=== PATIENT | male | born 1955 | race Caucasian/White ===

== ENCOUNTER 2022-09-22 16:04 | Emergency (ER) | payer OTHER ==
[2022-09-22 16:49] VITALS: TEMP 98; BMI 30.5
[2022-09-22] MEDS ORDERED: MAGNESIUM CITRATE 300 ML BOTTLE PO ONE (18:32)
[2022-09-22] MEDS ORDERED: KETOROLAC TROMETHAMINE 15 MG/ML VIAL IVPUSH ONE (18:35)
[2022-09-22] MEDS ORDERED: diazePAM 5 MG TABLET PO ONE (18:36)
[2022-09-22 19:00] LABS: BASO % 0.4 % (0-2.0); EOS % 1.1 % (0-4.5); HEMATOCRIT 45.3 % (35.4-49); HEMOGLOBIN 15.3 GM/dL (11.7-16.9); LYMPH % 30.7 % (8-40); MCH 28.3 pg (25.7-33.7); MCHC 33.8 g/dl (32.0-35.9); MEAN CELL VOLUME 83.7 fl (80-96); MEAN PLT VOLUME 7.4 fl (7.5-11.1); MONO % 12.8 % (3.8-10.2); PLATELET COUNT 271 10^3/uL (134-434); RBC 5.41 M/mm3 (4.00-5.60); RDW 14.1 % (11.9-15.9); WHITE BLOOD COUNT 4.3 K/mm3 (4.0-10.0)
[2022-09-22 19:04] LABS: PH,URINE 8.5 (5.0-8.0); URINE APPEARANCE CLEAR; URINE BILIRUBIN NEGATIVE (NEGATIVE); URINE COLOR YELLOW; URINE GLUCOSE (UA) NEGATIVE (NEGATIVE); URINE KETONE 1+ (NEGATIVE); URINE LEUK ESTERASE NEGATIVE (NEGATIVE); URINE NITRITE NEGATIVE (NEGATIVE); URINE PROTEIN NEGATIVE (NEGATIVE); URINE UROBILINOGEN 0.2 mg/dL (0.2-1.0)
[2022-09-22 19:22] LABS: ALBUMIN 4.3 g/dl (3.4-5.0); BLOOD UREA NITROGEN 15.5 mg/dL (7-18); CALCIUM 9.6 mg/dL (8.5-10.1); MAGNESIUM 2.6 mg/dL (1.8-2.4)
[2022-09-22 19:25] LABS: CREATININE 1.1 mg/dL (0.55-1.3)
[2022-09-22 19:27] LABS: TOT PROT 7.9 g/dl (6.4-8.2)
[2022-09-22] MEDS ORDERED: POLYETHYLENE GLYCOL (HEALTHYLAX) 3350 17 GM PACKET PO ONE (19:30)
[2022-09-22] MEDS ORDERED: POLYETHYLENE GLYCOL (HEALTHYLAX) 3350 17 GM PACKET ONE (19:35)
[2022-09-22 21:20] VITALS: BP 100/61; PULSE 87; RESP 18
[2022-09-22] MEDS ORDERED: LIDOCAINE 5% TOPICAL PATCH TP ONE (21:41)
[2022-09-22] MEDS ORDERED: LIDOCAINE 5% TOPICAL PATCH ONE (21:48)
[2022-09-23] MEDS ORDERED: LIDOCAINE PATCH REMOVAL MC SCH (10:00)
== END 2022-09-22 21:54 | disposition home or self-care (01) ==
LOC: JER 16:04
PROC: 3E0333Z Introduction of Anti-inflammatory into Peripheral Vein, Percutaneous Approach (ICD-10-PCS; principal; 2022-09-22)
DX: K59.00 Constipation, unspecified (principal); M54.50 Low back pain, unspecified
CPT/HCPCS: 36415; 72131-TC; 74176-TC; 80053; 81003; 83735; 84443; 85025; 87086; 96374; 99285-25

== ENCOUNTER 2022-09-23 18:11 | Emergency (ER) | payer OTHER ==
[2022-09-23 18:43] VITALS: BP 145/94; PULSE 69; RESP 18; TEMP 97.5; BMI 30.5
[2022-09-23] MEDS ORDERED: SODIUM PHOSPHATE/NA BIPHOS 133 ML ENEMA PR ONE (20:59)
== END 2022-09-23 22:14 | disposition home or self-care (01) ==
LOC: JER 18:11
DX: K59.00 Constipation, unspecified (principal)
CPT/HCPCS: 99283-25